=== PATIENT | male | born 1970 | race American Indian/Alaskan Native ===

== ENCOUNTER 2021-07-13 22:36 | Emergency (ER) | payer SELFPAY ==
[2021-07-14 00:48] VITALS: BP 138/87
--- NOTE | 2021-07-14 04:22 | Emergency Department Report ---
ED General Adult HPI - General Chief complaint: Extremity Injury, Lower Stated complaint: KNOT IN AB/RT SIDE PAIN IN THIGH Time Seen by Provider: 07/14/21 04:09 Source: patient Mode of arrival: Ambulatory Limitations: No Limitations - History of Present Illness Initial comments: 50-year-old male patient presents to the emergency department with complaints of a painless scrotal mass. Patient states he noticed the mass approximately 2 days ago. There was no preceding fall, trauma, or injury. Patient "felt a lump on the left side of his scrotum" and "got scared when someone told me it could be cancer." Patient is not currently under the care of a primary care provider. He has no known medical problems. Denies fever, chills, testicular pain/swe lling, penile discharge, painful urination. Denies all other complaints at this time. - Related Data Home Medications Medication Instructions Recorded Confirmed Last Taken HYDROcodone/APAP 5-325 [[place] 01/03/14 01/03/14 Unknown 5/325 mg] hydroCHLOROthiazide [Hctz] 01/03/14 01/03/14 Unknown Allergies Allergy/AdvReac Type Severity Reaction Status Date / Time No Known Allergies Allergy Unverified 01/03/14 15:30 ED Review of Systems ROS: Stated complaint: KNOT IN AB/RT SIDE PAIN IN THIGH Other details as noted in HPI Other: GENERAL: Negative for fever. CARDIOVASCULAR: Negative for chest pain. PULMONARY: Negative for shortness of breath. GASTROINTESTINAL: Negative for abdominal pain. GENITOURINARY: Positive for testicular mass. MUSCULOSKELETAL: Negative for back pain. NEUROLOGICAL: Negative for headache. INTEGUMENTARY: Negative for rash. ED Past Medical Hx - Past Medical History Previous Medical History?: Yes Hx Hypertension: Yes Hx Asthma: Yes Additional medical history: chronic back pain - Surgical History Past Surgical History?: No - Social History Smoking Status: Never Smoker Substance Use Type: None - Medications Home Medications: Home Medications Medication Instructions Recorded Confirmed Last Taken Type HYDROcodone/APAP 5-325 [[place] 01/03/14 01/03/14 Unknown History 5/325 mg] hydroCHLOROthiazide [Hctz] 01/03/14 01/03/14 Unknown History ED Physical Exam - General Limitations: No Limitations - Other Other exam information: General: Awake, appropriately interactive, no acute distress. Neck: Supple. Full range of motion intact. Cardiovascular: Normal peripheral perfusion. Pulmonary: No respiratory distress. Patient is speaking normally without use of accessory muscles. Genitourinary: Male psychiatric technician (Jigar, owner professional engineer) present. Small non-tender subcutaneous mobile nodule palpated along the inferior aspect of the left testicle. Normal external inspection. No evidence of inguinal hernia. No scrotal edema or tenderness. No blood or discharge at the urethral meatus. No rashes or lesions. Skin: No apparent rashes or lesions. Neurological: No facial asymmetry. Speech is clear. Follows commands. Patient is alert and oriented. Musculoskeletal: Moves all four extremities spontaneously with normal range of motion. Psych: Cooperative. Appropriate mood and affect. ED Course Vital Signs 07/14/21 00:47 Temperature 97.9 F Pulse Rate 74 Respiratory 18 Rate Blood Pressure 138/87 [Right] O2 Sat by Pulse 99 Oximetry ED Medical Decision Making - Medical Decision Making Differential diagnosis including but not limited to: testicular torsion, epididymitis, spermatocele, hydrocele, abscess Patient presents to the emergency department with complaints of a painless mobile subcutaneous nodule to his left testicle. He is afebrile, hemodynamically stable, no testicular pain/swelling/discoloration/tenderness. There is no clinical indication for emergent diagnostic work-up. He will require close outpatient follow-up for further evaluation and management. Patient will be referred to both primary care provider and urologist and instructed to call today to schedule appointments. Patient expressed understanding and is agreeable to plan of care. Strict return precautions provided. BILLING/CODING: This patient encounter does not represent a certified medical emergency. Critical care attestation.: If time is entered above; I have spent that time in minutes in the direct care of this critically ill patient, excluding procedure time. ED Disposition Clinical Impression: Testicular nodule Disposition: 01 HOME / SELF CARE / HOMELESS Is pt being admited?: No Does the pt Need Aspirin: No Condition: Stable Instructions: Testicular Self-Exam, [id number] Additional Instructions: You must follow-up with primary care provider and/or urologist on an outpatient basis for further evaluation and management. Return to the emergency department immediately for new or worsening symptoms. Referrals: MELODY DENNIS MD [Staff Physician] - 3-5 Days VINCENT PIÑA MD [Staff Physician] - 3-5 Days Time of Disposition: 04:23
== END 2021-07-14 06:08 | disposition home or self-care (01) ==
LOC: ED 22:36
DX: N50.89 Other specified disorders of the male genital organs (principal); I10 Essential (primary) hypertension; J45.909 Unspecified asthma, uncomplicated; G89.29 Other chronic pain; Z79.899 Other long term (current) drug therapy
CPT/HCPCS: 99281